=== PATIENT | male | born 1995 | race Two or more races ===

== ENCOUNTER 2024-03-05 16:26 | Emergency (ER) | payer OTHER ==
[~2024-03-05] VITALS: Ht 188 cm; Wt 82.6 kg
[2024-03-05] MEDS ORDERED: CEFTRIAXONE SODIUM 2,000 MG VIAL IV STA (16:57)
[2024-03-05 17:37] LABS: HEMATOCRIT 44.9 % (39.0-48.0); HEMOGLOBIN 15.8 g/dL (13-16.00); MEAN CELL VOLUME 88.6 fL (80.0-100.00); MEAN CORPUSCULAR HEMOGLOBIN 31.2 pg (27.00-32.0); MEAN CORPUSCULAR HGB CONC 35.2 g/dl (32.0-36.0); PLATELET COUNT 295 K/uL (150-450); RED BLOOD COUNT 5.07 M/uL (4.00-6.00); RED CELL DISTRIBUTION WIDTH 12.7 % (11.5-14.5)
== END 2024-03-05 19:22 | disposition home or self-care (01) ==
LOC: ER 16:27
PROVIDERS: General Practice
DX: L03.115 Cellulitis of right lower limb (principal)

== ENCOUNTER 2024-07-02 09:10 | Emergency (ER) | payer OTHER ==
[~2024-07-02] VITALS: Ht 188 cm; Wt 72.6 kg
== END 2024-07-02 10:42 | disposition home or self-care (01) ==
LOC: ER 09:12
DX: H92.02 Otalgia, left ear (principal)